=== PATIENT | female | born 1960 | race Caucasian/White ===

== ENCOUNTER 2018-10-25 08:42 | Day surgery (SDC) | payer MEDICAID ==
[2018-10-25] MEDS ORDERED: PROPOFOL 60 ML (10:18)
== END 2018-10-25 12:52 | disposition home or self-care (01) ==
LOC: GIL 08:42
DX: R19.4 Change in bowel habit (principal); K64.8 Other hemorrhoids; K44.9 Diaphragmatic hernia without obstruction or gangrene; K21.9 Gastro-esophageal reflux disease without esophagitis
CPT/HCPCS: 43239; 88305